=== PATIENT | female | born 1950 | race African-American/Black ===

== ENCOUNTER 2017-05-31 07:01 | Emergency (ER) | payer MEDICARE, OTHER ==
[~2017-05-31] VITALS: Ht 165.1 cm; Wt 68.0 kg
[2017-05-31 07:20] VITALS: Ht 165.1 cm; Wt 68.0 kg
[2017-05-31] MEDS ORDERED: POLY10DR19 RIGHT EYE (07:49)
--- NOTE | 2017-05-31 09:09 | ERD ---
ER Documentation Chief Complaint Date/Time DATE: 05/31/17 TIME: 08:54 Chief Complaint rt eye reddness and discharge since this am HPI 66-year-old female complaining of right eye redness and discharge since this morning. Patient reports her right eye was glued shut this morning upon awake. Patient reports a brief episode of slight high pain last night. Patient stated that she has history of glaucoma, and have occasional eye pains bilaterally. The eye pain history is similar to previous eye pains. She uses Lumigan and Cosopt drops for her glaucoma, and had not used them this morning. Patient also has history of hypertension, acid reflux, overactive bladder syndrome, and allergic rhinitis. Denies eye pain at this time. Denies photophobia. Denies nausea or vomiting. Denies blurry vision. ROS All systems reviewed and are negative except as per history of present illness. Medications Home Meds Active Scripts Polymyxin B Sulfate-TMP* (Polymyxin B-TMP Eye Drops*) 10 Ml Drops, 1 DROP RIGHT EYE QID for 7 Days, EA Prov:ESTEFANY ZHAO PROMOTIONS ASSISTANT 05/31/17 Allergies Allergies: Coded Allergies: No Known Allergy (Unverified , 05/31/17) PMhx/Soc History of Surgery: Yes (b/l eye surgery ) Anesthesia Reaction: No Hx Neurological Disorder: No Hx Respiratory Disorders: No Hx Cardiac Disorders: Yes (htn) Hx Psychiatric Problems: No Hx Miscellaneous Medical Probl: Yes (glaucoma ) Hx Alcohol Use: No Hx Substance Use: No Hx Tobacco Use: No Smoking Status: Never smoker Physical Exam Vitals Vital Signs Date Time Temp Pulse Resp B/P Pulse Ox O2 Delivery O2 Flow Rate FiO2 05/31/17 07:20 98.2 62 18 137/70 99 Physical Exam General: Well-developed, well-nourished, conscious and coherent, in no distress Skin: Warm and dry without rash, good texture and turgor Head: Normocephalic without evidence of trauma Eyes: Sclera normal, right conjunctiva injected, with moderate discharge; pupils equal, round, and reactive to light; extraocular movements are intact Neck: Supple without meningismus or adenopathy. Carotids are equal. Trachea midline. No bruits or JVD Chest: Normal AP diameter. Good expansion without retractions. Nontender. Lungs are clear to auscultate bilaterally with good tidal volume Heart: Regular rate and rhythm. No murmur, rub, or gallops heard Extremities: Full range of motion. Good strength bilaterally. No clubbing, cyanosis, or edema. Peripheral pulses are intact. Sensation intact Neuro: Alert and oriented 4, GCS 15. Cranial nerves grossly intact. Motor and sensory exams nonfocal. Moves all extremities. Speech clear. Gait normal Procedures/MDM Well-appearing 66-year-old female with history of alcohol, presented to ED with right eye redness 1 day. Visual acuity, corrected with glasses: Left 20/25, right 20/25, bilateral 20/20. Jose-Pen: Left 24, right 29. Patient is history exam findings are consistent with acute conjunctivitis. Her eye pressures are elevated, likely due to pre-existing glaucoma. She did not take her medications this morning. Low suspicion for acute angle-closure glaucoma. I doubt retinal detachment, retinal artery occlusion, optic neuritis , periorbital or orbital cellulitis. Patient appears well, stable for discharge and outpatient management. Medical decision making shared with patient and family. Education provided to patient and family. Patient and family expressed understanding of the plan. Medications on discharge: Polytrim ophthalmic. Follow-up: [facility] if no improvement or worse Departure Diagnosis: Primary Impression: Conjunctivitis Condition: Stable Patient Instructions: Conjunctivitis, Bacterial Referrals: [facility] YOU HAVE RECEIVED A MEDICAL SCREENING EXAM AND THE RESULTS INDICATE THAT YOU DO NOT HAVE A CONDITION THAT REQUIRES URGENT TREATMENT IN THE EMERGENCY DEPARTMENT. FURTHER EVALUATION AND TREATMENT OF YOUR CONDITION CAN WAIT UNTIL YOU ARE SEEN IN YOUR DOCTORS OFFICE WITHIN THE NEXT 1-2 DAYS. IT IS YOUR RESPONSIBILITY TO MAKE AN APPOINTMENT FOR FOLOW-UP CARE. IF YOU HAVE A PRIMARY DOCTOR --you should call your primary doctor and schedule an appointment IF YOU DO NOT HAVE A PRIMARY DOCTOR YOU CAN CALL OUR PHYSICIAN REFERRAL HOTLINE AT IF YOU CAN NOT AFFORD TO SEE A PHYSICIAN YOU CAN CHOSE FROM THE FOLLOWING [facility] [id number] [facility] [address] [facility] [address] [facility] [address] [facility] [id number] [facility]. [facility] [address] [facility] Hours: Mon - Fri 9:00 AM - 5:00 PM Additional Instructions: Follow up with your sueding machine tender if no improvement or worse. ESTEFANY ZHAO NP May 31, 2017 09:05
== END 2017-05-31 07:57 | disposition home or self-care (01) ==
LOC: FTE 07:01
DX: H10.9 Unspecified conjunctivitis (principal); I10 Essential (primary) hypertension
CPT/HCPCS: 99283

== ENCOUNTER 2018-02-15 08:00 | Outpatient (CLI) | END 2018-02-15 23:59 | disposition home or self-care (01) ==

== ENCOUNTER → 2018-11-23 | Outpatient (CLI) | END | disposition home or self-care (01) ==